=== PATIENT | female | born 2000 | race African-American/Black ===

== ENCOUNTER 2025-08-10 23:59 | Emergency (ER) | payer SELFPAY ==
[2025-08-11] MEDS ORDERED: Dexamethasone 4 MG TAB ONE (00:33)
== END 2025-08-11 00:49 | disposition home or self-care (01) ==
LOC: CSHERS 23:59
DX: J02.9 Acute pharyngitis, unspecified (principal)
CPT/HCPCS: 87081; 87428; 87430; 99283; J8540